=== PATIENT | female | born 1995 | race Caucasian/White ===

== ENCOUNTER 2022-07-05 17:46 | Outpatient (REF) | payer OTHER, SELFPAY ==
--- NOTE | 2022-07-05 15:10 | PAPFT_PTH ---
PATIENT: Chantale Lantigua LOC: [facility]#:[id number] AGE/SX: 27/F ROOM: RE07/05/[address]: Aleja Reyes : 1995 BED: DIS: 07/05/2022 SPEC #: [id number] RECD: 07/05/22 18:39 STATUS: INGRID REQ #: [id number] ROB: 07/05/22 15:[address]: Aleja Reyes DEPT: [facility] Cytology RECD BY: Dali Lala ENTERED: 07/05/22 18:39 SP TYPE: PAPFT OTHR DR: Unknown,Unknown Tissues: 1 - CX/ENDOCX FOR PAP SMEARS Procedures: PAP THIN PREP/UVM Screening Comments: [id number] (CHLAMYDIA/GC)
[2022-07-05 18:55] LABS: HCT 38.9 % (36.0-46.0); HGB 13.6 g/dL (11.2-15.7); MCH 29.1 pg (27.0-33.0); MCV 83 fL (80-95); Platelet Count 354 10^3/uL (130-400); RBC 4.67 10^6/uL (3.93-5.22); RDW 12.5 % (11.7-14.6); RDW-SD 37.8 fL; WBC 7.41 10^3/uL (4.4-10.8)
[2022-07-05 19:15] LABS: ALT 18 U/L (14-59); AST 16 U/L (15-37); Albumin 4.3 g/dL (3.4-5.0); Alkaline Phosphatase 76 U/L (46-116); Anion Gap 12.1 mmol/L (3-11); BUN 11 mg/dL (7-18); Bilirubin, Total 0.4 mg/dL (0.2-1.0); CO2 23.9 mmol/L (21.0-32.0); CREATININE 0.8 mg/dL (0.55-1.02); Calcium 9.4 mg/dL (8.5-10.1); Chloride 104 mmol/L (98-107); Glucose 97 mg/dL (74-106); Potassium 3.8 mmol/L (3.5-5.1); Sodium 140 mmol/L (136-145); TSH (W/Ref FT4) 1.67 uIU/mL (0.36-3.74); Total Protein 7.8 g/dL (6.4-8.2)
[2022-07-06 14:40] LABS: Chlamydia Result Negative (Negative); GC Result Negative (Negative)
== END 2022-07-05 17:47 | disposition home or self-care (01) ==
LOC: NCHCN 17:46
PROVIDERS: Visit Provider Nurse Practitioner Family
DX: R19.7 Diarrhea, unspecified (principal); R80.9 Proteinuria, unspecified; Z00.00 Encounter for general adult medical examination without abnormal findings; Z12.4 Encounter for screening for malignant neoplasm of cervix; Z11.3 Encounter for screening for infections with a predominantly sexual mode of transmission
CPT/HCPCS: 80053; 85027; 87491; 87591; 88142; 84443; 87086

== ENCOUNTER 2022-07-12 11:24 | Outpatient (CLI) | payer OTHER, SELFPAY ==
--- NOTE | 2022-07-12 | DI.CT_ITS ---
Exam(s) CT ABDOMEN PELVIS W EXAM: CT ABDOMEN PELVIS W CLINICAL HISTORY: DIARRHEA R19.7 WEIGHT LOSS R63.4 FEVER R50.9 ENDOMETRIOSIS N80.9. TECHNIQUE: Imaging Protocol: Axial computed tomography images with coronal and sagittal reformatted images were created and reviewed CONTRAST MATERIAL: Intravenous: Omnipaque-350 100cc Oral: Yes. Oral contrast was also administered for bowel opacification. COMPARISON: No exams were available for comparison FINDINGS: VISUALIZED LUNG BASES: No nodules nor pleural effusions evident. ABDOMEN: There is no ascites. LIVER: There are no focal hepatic lesions evident. No dilated intrahepatic ducts. GALLBLADDER/BILIARY: No obvious acute gallbladder pathology. CBD is not dilated. PANCREAS: No evidence of pancreatic mass nor dilatation of the pancreatic duct. SPLEEN: Spleen is not enlarged. No obvious intrasplenic lesions. Splenic and portal veins are paten t. ADRENALS: There are no significant adrenal masses. KIDNEYS:No cysts evident. No solid renal masses. No calculi nor hydronephrosis.. ABDOMINAL AORTA: Abdominal aorta is not enlarged. LYMPH NODES:There is no retroperitoneal nor paraaortic adenopathy. ABDOMINAL WALL: No evidence of significant anterior abdominal wall nor inguinal hernia. GI: There is no evidence of bowel obstruction, free air, nor abscess. Normal amount of fecal material in the colon. No obvious colitis pattern. No obvious enteritis markus georges. PELVIS: GI: No evidence of appendicitis.No evidence of sigmoid diverticulitis. LYMPH NODES: There is no intrapelvic nor inguinal adenopathy. REPRODUCTIVE: Uterus size is normal. Endometrial canal exhibits a moderate arcuate configuration. Ovarian size age-appropriate with follicular cysts evident in both ovaries. Also probable corpus lut eum cyst in the right ovary measuring 2.2 x 2.3 cm. There are no extraovarian adnexal masses nor camille e fluid in the pelvis. URINARY BLADDER: No calculi nor obvious masses evident OSSEOUS: No fractures and no significant osseous lesions. Increased density seen on the iliac side of both sacroiliac joints. No ankylosis. IMPRESSION: 1. No significant acute findings in the abdomen and pelvis. 2. Incidentally noted is an arcuate configuration of the endometrial canal of the uterus. RADIATION DOSE DELIVERED: Total DLP DATA REPOSITORY: All CT scans at this facility are submitted to the National Radiology Data Registry (NRDR) Dose Index Registry (DIR) with the [employer] (ACR). RADIATION OPTIMIZATION: All CT scans at this facility use at least one of these dose optimization te chniques: automated exposure control; mA and/or kV adjustment per patient size (includes targeted exa ms where dose is matched to clinical indication); or iterative reconstruction.
[2022-07-12] MEDS: Barium Sulfate 2% W/V-Berry Smoothie 450 ML BTL PO (14:47)
[2022-07-12] MEDS: Normal Saline - Diluent 50 ML VIAL IJ (14:51)
[2022-07-12] MEDS: Omnipaque 350 MG/ML 100 ML BTL IJ (14:52)
[2022-07-12] MEDS: Normal Saline Flush 10 ML SYR IVP (14:54)
== END 2022-07-12 11:44 ==
PROVIDERS: Visit Provider Nurse Practitioner Family
DX: R19.7 Diarrhea, unspecified (principal); R50.9 Fever, unspecified; N80.9 Endometriosis, unspecified
CPT/HCPCS: 74177; J3490

== ENCOUNTER 2022-08-22 01:31 | Outpatient (CLI) | payer OTHER, SELFPAY ==
[2022-08-22 16:23] LABS: HCT 37.9 % (36.0-46.0); HGB 13.3 g/dL (11.2-15.7); MCH 29.3 pg (27.0-33.0); MCHC 35.1 % (32.0-36.0); MCV 84 fL (80-95); MPV 10.5 fL (8.0-11.0); Platelet Count 307 10^3/uL (130-400); RBC 4.54 10^6/uL (3.93-5.22); RDW 12.5 % (11.7-14.6); WBC 8.54 10^3/uL (4.4-10.8)
[2022-08-22 17:18] LABS: HCG Qual (Serum) Negative
[2022-08-22 17:28] LABS: Anion Gap 8.6 mmol/L (3-11); BUN 11 mg/dL (7-18); CO2 26.4 mmol/L (21.0-32.0); CREATININE 0.8 mg/dL (0.55-1.02); Calcium 9.4 mg/dL (8.5-10.1); Chloride 104 mmol/L (98-107); Glucose 113 mg/dL (74-106); Potassium 3.4 mmol/L (3.5-5.1); Sodium 139 mmol/L (136-145)
== END 2022-08-22 01:32 | disposition home or self-care (01) ==
LOC: LBO 01:31
PROVIDERS: Visit Provider Obstetrics & Gynecology Gynecology
DX: Z01.818 Encounter for other preprocedural examination (principal)
CPT/HCPCS: 36415; 80048; 85027; 86850; 86900; 86901; 84703

== ENCOUNTER 2022-08-24 07:18 | Day surgery (SDC) | payer OTHER, SELFPAY ==
--- NOTE | 2022-08-23 14:56 | ANES.PREOP_ITS ---
General Info Date of Service Date Performed: 08/24/22 Height: 5 ft 5 in Weight: 90.718 kg Body Mass Index (BMI): 33.3 Surgical Procedure: Operation Date: 08/24/22 09:25 Proposed Procedure Side Surgeon p Diagnostic Laparoscopy Dyana Mar MD s Insertion of IUD Dyana Mar MD Meds Allergies and Home Medications Allergies Allergy/AdvReac Type Severity Reaction Status Date / Time Pertussis Vaccines Allergy Severe ananphylaxi Verified 08/24/22 07:58 s Sulfa (Sulfonamide AdvReac Severe Anaphylaxis Verified 08/24/22 07:58 Antibiotics) Home Medication Medication Instructions Recorded albuterol sulfate 90 mcg/actuation 2 inh inhalation Q6H PRN 12/28/20 breath activated powder inhaler sertraline 100 mg tablet 100 mg PO DAILY 12/28/20 imodium 1 tab PO DIRECTED 07/13/22 Current Visit Medications: Current Medications Generic Name Dose Route Start Last Admin Trade Name Freq PRN Reason Stop Dose Admin Ringer's Solution 1,000 mls @ 125 mls/hr 08/24/22 06:00 IV 09/22/22 23:59 INFUSION RANDI IV Miscellaneous Supplies 1 each 08/24/22 06:00 Iv Access IV 09/22/22 23:59 DIRECTED RANDI Sodium Chloride 0 ml 08/24/22 06:00 Normal Saline Flush 10 Ml Syr IV 09/22/22 23:59 PRN PRN Sodium Chloride 0 ml 08/24/22 06:00 Normal Saline 10 Ml Vial IJ 09/22/22 23:59 DIRECTED PRN Sterile Water 0 ml 08/24/22 06:00 Water,Injection,Sterile 10 Ml Vial IJ 09/22/22 23:59 DIRECTED PRN PFSH Active Problems Active Problems: Problem Status Onset Code Dysmenorrhea N94.6 Fever, unknown origin R50.9 Diarrhea R19.7 Unintentional weight loss R63.4 Endometriosis N80.9 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 H/O laparoscopy 2018. [place] Hx of dilation and curettage 2018. At time of fulguration of endometriosis. Nl endometrium. [place] Hx of tonsillectomy 2017. Ulnar nerve abnormality 2013 Umbilical hernia 2006 [place] teeth extracted 2011. Tobacco Smoking/Tobacco Use Status: Never Alcohol Alcohol Intake: current Alcohol intake frequency: a few times a month Substance Use Substance use: Daily Substance use type: marijuana Vital Signs and Lab Results Vital Signs Most Recent Vital Signs in EMR: Temp Pulse Resp BP Pulse Ox 36.4 C L 63 16 117/65 98 08/24/22 07:49 08/24/22 07:49 08/24/22 07:49 08/24/22 07:49 08/24/22 07:49 Lab Results Blood Type / Crossmatch: Patient ABO/Rh O Negative 08/22/22 Antibody Screen NEGATIVE 08/22/22 Complete Blood Count: White Blood Count 8.54 10^3/uL (4.4-10.8) 08/22/22 16:15 Red Blood Count 4.54 10^6/uL (3.93-5.22) 08/22/22 16:15 Hemoglobin 13.3 g/dL (11.2-15.7) 08/22/22 16:15 Hematocrit 37.9 % (36.0-46.0) 08/22/22 16:15 Platelet Count 307 10^3/uL (130-400) 08/22/22 16:15 Complete Metabolic Panel: Sodium 139 mmol/L (136-145) 08/22/22 16:15 Potassium 3.4 mmol/L (3.5-5.1) L 08/22/22 16:15 Chloride 104 mmol/L (98-107) 08/22/22 16:15 Carbon Dioxide 26.4 mmol/L (21.0-32.0) 08/22/22 16:15 BUN 11 mg/dL (7-18) 08/22/22 16:15 Creatinine 0.8 mg/dL (0.55-1.02) 08/22/22 16:15 Est GFR (CKD-EPI 2020) 104.80 (mL/min/1.73m2) 08/22/22 16:15 Calcium 9.4 mg/dL (8.5-10.1) 08/22/22 16:15 Glucose 113 mg/dL (74-106) H 08/22/22 16:15 Liver Function Panel: No Data to Display Coagulation Panel: No Data to Display Cardiac Panel: No Data to Display Arterial Blood Gas: No Data to Display Venous Blood Gas: No Data to Display Pancreas Panel: No Data to Display Thyroid Panel: No Data to Display Infectious Disease: No Data to Display Blood Cultures: No Data to Display Toxicology Panel: No Data to Display Panel: Serum HCG, Qualitative Negative 08/22/22 16:15 Anesthesia Assessment and Plan Anesthesia History Personal History: No History of Anesthesia Complications Family History: No Family History of Anesthesia Complications Exercise Tolerance Exercise Tolerance: Metabolic Equivalents>4 Pertinent Negatives Pertinent Negatives: No Major Cardiovascular Symptoms or Complaints, No Major Pulmonary Symptoms or Complaints and No History of CVA/TIA Cardiac & Pulmonary Exam Cardiac Exam: Normal S1/S2 Heart Sounds Pulmonary Exam: Clear Bilateral Breath Sounds Implantable Cardiac Device Does patient have a Pacemaker or an ICD?: No Airway Exam Known Difficult Airway: No Mallampati Class: 3 Mouth Opening: Normal (> 3cm) Thyromental Distance: Less than 3 cm Neck Range of Motion: Full ROM Neck Circumference: Normal Teeth Condition: Normal Dentition ASA Classification ASA Score: ASA 2 Emergency Case?: No NPO Status NPO Status: NPO Clears >2 hours, Solids >8 hours Status Status: Negative HCG Anesthesia Plan Resuscitation Status: Full Code Anesthesia Technique: General Anesthesia Airway Planned: Endotracheal Tube Monitors Used: Standard Monitors Preoperative Comments:: 27 yo female for diagnostic lap for chronic pelvic pain. Sig PMHx: PTSD, OCD, asthma (albuterol - mostly with cough/colds), anxiety (sertraline), never smoker, occ EtOH, daily cannabis Chronic GERD, uses OTC meds, no inhaler use for greater than a year and only with URI
[2022-08-24] VITALS (11 sets, daily range): BP systolic 109–125; BP diastolic 45–74; PULSE 59–85; RESP 13–19; TEMP 36.2–37; O2SAT 95–100; BMI 33.3
[2022-08-24] MEDS: Lactated Ringers 1,000 ML 125 ML IV (08:16)
--- NOTE | 2022-08-24 10:47 | PERITONEUM_PTH ---
PATIENT: Chantale Lantigua LOC: [facility] U#:[id number] AGE/SX: 27/F ROOM: RE08/24/[address]: Dyana Mar : 1995 BED: DIS: 08/24/2022 SPEC #: [id number] RECD: 08/24/22 11:40 STATUS: INGRID REQ #: [id number] ROB: 08/24/22 10:[address]: Dyana Mar DEPT: Surgical Specimen RECD BY: Dali Lala Tissues: 1 - PERITONEUM/RICHARD BIOPSY Procedures: GROSS AND MICRO LEVEL 4 Comments: [id number]
--- NOTE | 2022-08-24 11:18 | PDOC.DSDIS_ITS ---
Date of service: 08/24/22 Time of Service: 11:19 Discharge Plan Disposition Patient Disposition: Home Condition: Fair Discharge Details Reason For Visit: Diagnostic laparoscopy, Pelvic pain Attending Provider: Dyana Mar Home Meds and New Rx's Prescriptions: No Action imodium 1 tab PO DIRECTED sertraline 100 mg tablet 100 mg PO DAILY albuterol sulfate 90 mcg/actuation aerosol powdr breath activated 2 inh inhalation Q6H PRN Discharge Instructions Additional Instructions: Your IUD is in place. There are strings on the inside of your vagina. It is OK to use tampons with the IUD in place. You may have uterine bleeding for the next week. Call the office for a postop appointment in 2 weeks if you don't already have one scheduled. Findings at the time of surgery. 2.5cm endometriosis implant on the pelvic wall beneath your uterus. It was burnt and removed. No other endometriosis was seen. I will call a prescription for Percocet 5/325mg into your pharmacy. Take one tablet every six hours for strong pain along with Ibuprofen 600mg ( 3 tablets ) of over the counter Motrin. Call Dr. Mar at [phone] with any concerns or questions. Stand Alone Forms: Anesthesia Discharge Inst., DSU Post Medical Lab Scientist SurgeryW/[facility] ([facility]) Activity:: Activity as Tolerated Remove Dressings/Wound Care:: 24 hours Shower/Bathe:: 24 hours Diet:: As Tolerated
--- NOTE | 2022-08-24 11:34 | W.ANESPOSTOP ---
Postoperative Evaluation Date, Time and Location Date Performed: 08/24/22 Time Performed: 11:34 Patient Location: PACU Vital Signs Most Recent Imported Vital Signs: Most Recent Vital Signs Temp Pulse Resp BP Pulse Ox 36.5 C 76 16 109/74 98 08/24/22 11:16 08/24/22 11:16 08/24/22 11:16 08/24/22 11:16 08/24/22 11:16 Pain Score Most Recent Pain Score: Most Recent Pain Score Pain Level 0 08/24/22 11:16 Assessment Mental Status: Arousable with meaningful communication Airway and Respiratory Function: Patent airway with normal (patient baseline) respiratory exam Cardiovascular Function: Hemodynamically Stable Hydration Status: Adequately Hydrated Nausea & Vomiting: No Nausea or Vomiting Pain: Pain is Moderate or Severe Postoperative Pain Management: Pain being addressed with medication Peripheral Nerve Block: Patient did not receive a nerve block
[2022-08-24] MEDS: Normal Saline 10 ML VIAL IJ (11:41)
[2022-08-24] MEDS: HYDROmorphone 2 MG/ML SYR IVP ×3 (11:41→12:01)
--- NOTE | 2022-08-24 11:41 | ROE_ITS ---
Date of service: 08/24/22 Time of Service: 11:41 Operative Note Operative Note DATE OF PROCEDURE: 08/24/22 PRE-OP DIAGNOSIS: Pelvic pain, endometriosis, dysmenorrhea samel PROCEDURE: Laparoscopy with fulguration and excision of endometriosis, insertion of Kyleena IUD SURGEON: Dyana Mar ASSISTING SURGEON: Eli Chapin Refer to Anesthesia Record ESTIMATED BLOOD LOSS: 0 PATHOLOGY: other (solitary focus of endometriosis from posterior culdesac) COMPLICATIONS: None Patient was transported to: PACU Patient's condition: stable Implants: Kyleena IUD Lot# [id number] Exp date Indications: 27yo G0 female with a history of chronic pelvic pain and dysmenorrhea.?History of endometriosis. Findings: 2.5cm solitary lesion of endometriosis of the pelvic side wall in posterior culdesac. Both adnexa visualized. Nl appearing ovaries and fallopian tubes. Normal upper abdomen. Appendix not visualized. Procedure Description: Patient was taken to the operating room where she was placed in the dorsal ortiz pine position and endotracheal anesthesia was administered.? She was then placed in the dorsolithotomy position [facility] stirrups and prepped in the usual sterile fashion.? SCDs were in place.? A surgical timeout was performed.?A hyamn catheter was inserted into the bladder for the remainder of the case. A Cav[employer] microcaps uterine manipulator was inserted and left in place during the case. The umbilical fold was infiltrated with quarter percent Marcaine in a 12 mm transverse skin incision was made in the umbilicus along the previous scar.? Through this incision a varies needle connected to carbon dioxide gas was inserted into the abdomen but we were unable to confirm intra-abdominal placement since there was no drop in the intra-abdominal pressure.?Instead the subcutaneous tissue beneath the umbilical incision was dissected to the level of the fascia. The fascia was tented up with Armen clamps and the 12 mm Visiport trocar was introduced into the abdomen under direct visualization.Once a pn eumoperitoneum was established the patient was placed in the Trendelenburg position two 5mm trochars with sleeves were placed approximately 6 cm diagonal to the right and left of the umbilical incision under direct visualization. The abdomen was inspected with the above-noted findings. The peritoneum to which the endometriosis implant was attatched was grasped, tented up and cauterized with monopolar electrocautery. The treated peritoneum was then excised and sent to pathology. The excision site was inspected and noted to be hemostatic. Patient was repositioned in the dorsal supine position and both 5 mm ports were removed under direct visualization.? The pneumoperitoneum was deflated and the umbilical port site was removed.? The rectus fascia below the 12 mm port site was reapproximated with interrupted suture of 0 Vicryl.? The skin was reapproximated on the umbilical port site with a running subcuticular closure of 4-0 Monocryl.? The edges of both 5 mm and 12 mm port sites were reapproximated with Steri-Strips and covered with dry sterile dressing. Hyman catheter was removed.The [employer] uterine manipulator was removed from the cervix. The anterior lip of the cervix was grasped and a single tooth tenaculum and a Kyleena IUD was then inserted into the uterine cavity to a depth of 6cm with the assistance of transabdominal ultrasound to confirm the IUD was at the uterine fundus. The IUD strings were trimmed and all instruments were removed from the vagina. The patient was placed in the dorsal supine position, awakened, extubated and transported recovery area in stable condition.? All sponge lap needle counts correct x2.
== END 2022-08-24 13:20 | disposition home or self-care (01) ==
PROVIDERS: Visit Provider Obstetrics & Gynecology Gynecology
PROC: (CPT 49320; principal; 2022-08-24 09:15)
PROC: (CPT 58662; 2022-08-24 09:15)
DX: N94.6 Dysmenorrhea, unspecified (principal); R10.2 Pelvic and perineal pain; N80.329 Endometriosis of the posterior cul-de-sac, unspecified depth
CPT/HCPCS: 58662; 58300; 81025; 88305; J0131; J1100; J1170; J1885; J2250; J2405; J3475

== ENCOUNTER 2024-03-26 08:44 | Emergency (ER) | payer OTHER, SELFPAY ==
[2024-03-26] VITALS (10 sets, daily range): BP systolic 110–128; BP diastolic 55–69; PULSE 57–94; RESP 8–19; TEMP 35.9; O2SAT 98–100
--- NOTE | 2024-03-26 08:45 | RT.EKG_ITS ---
APPROVED REPORT Exam: Resting ECG Reason for Exam: Chest Pain Patient Location: E HR:67 bpm ECG Measurements Heart Rate 67 AXIS TN 163 P 48 QRSd 90 QRS 32 QT 374 T 37 QTc 395 Conclusion Sinus arrhythmia...V-rate 59- 85, variation>10%
--- NOTE | 2024-03-26 09:00 | DI.RAD_ITS ---
Exam(s) XR CHEST 2V PA LATERAL EXAM: XR CHEST 2V PA LATERAL CLINICAL HISTORY: chest pain TECHNIQUE: 2D digital imaging was performed. Two views. COMPARISON: No exams were available for comparison FINDINGS: HEART: Normal size. Aorta: Not dilated. PULMONARY VASCULATURE: Normal. MEDIASTINUM: Unremarkable. LUNGS: Clear. PLEURAL SPACE: No pleural effusion or pneumothorax. BONE:Unremarkable for age. SOFT TISSUES: Unremarkable. IMPRESSION: No acute abnormality. DATA REPOSITORY: RADIATION DOSE DELIVERED:
--- NOTE | 2024-03-26 09:09 | W.ED.GENAD ---
Discharge Plan Disposition Patient Disposition: Home Condition: Stable Discharge Details Clinical Impression: Chest pain Primary Care Provider: Unknown,Unknown ED Provider: Robert Lester Home Meds and New Rx's Prescriptions: Continued Kyleena 17.5 mcg/24 hrs (5 yrs) 19.5 mg intrauterine device 1 device intrauterine ONCE Qty: 1 0RF Rx Instructions: as a single dose albuterol sulfate 90 mcg/actuation aerosol powdr breath activated 2 inh inhalation Q6H PRN Discharge Instructions Additional Instructions: Your labs and x-ray did not show any concerning findings at this time You can take 1000 mg of acetaminophen and 600 mg of ibuprofen every 6 hours as needed Follow-up with your primary care provider if you are not improving If you feel more ill, have severe worsening pain or difficulty breathing return to the emergency department for reevaluation. HPI General Mode of arrival: ambulatory. Date/Time Provider Initiated Documentation: 03/26/24 08:45. Limitations to Documentation: no limitations. Information obtained by: patient. History of Present Illness 28 year old F presents to the emergency department with the chief complaint of chest pain, described as moderate, Quality is described as aching, and is localized to the chest. Patient reports no radiation. Patient started experiencing this day(s) (2) and it has been constant. No relieving factors improve symptom(s), Other factors that worsen symptoms (touching her sternum) . Patient notes denies fever/chills and shortness of breath. Patient did receive the following treatments prior to arrival, none Related Data Home Medications ?Medication ?Instructions ?Recorded ?Confirmed albuterol sulfate 90 mcg/actuation 2 inh inhalation Q6H PRN 12/28/20 03/26/24 breath activated powder inhaler levonorgestrel 17.5 mcg/24 hr (up 1 device intrauterine ONCE #1 ea 08/24/22 03/26/24 to 5 yrs) 19.5mg intrauterine device (Kyleena) Previous Rx's ?Medication ?Instructions ?Recorded levonorgestrel 17.5 mcg/24 hr (up 1 device intrauterine ONCE #1 ea 08/24/22 to 5 yrs) 19.5mg intrauterine device (Kyleena) Allergies Allergy/AdvReac Type Severity Reaction Status Date / Time Pertussis Vaccines Allergy Severe ananphylaxi Verified 03/26/24 08:47 s Sulfa (Sulfonamide AdvReac Severe Anaphylaxis Verified 03/26/24 08:47 Antibiotics) General Stated Complaint: Chest/Rib ISABELLA: 4 Review of Systems All systems reviewed & are unremarkable except as noted in HPI and below Constitutional Constitutional: Denies chills, Denies fever(s) and Denies weakness Cardiovascular Cardiovascular: Reports chest pain and Denies dyspnea Respiratory Respiratory: Denies cough and Denies dyspnea Gastrointestinal Gastrointestinal: Denies abdominal pain, Denies nausea and Denies vomiting Musculoskeletal Musculoskeletal: Denies joint swelling Neurologic Neurologic: Denies weakness Exam Const General: no acute distress Orientation: alert HENMT Head: normal to inspection Ears: external ears normal General nose exam: external nose normal Mouth: moist mucous membranes Eyes General: appearance normal, both eyes and all related structures Neck Neck: normal visual inspection Chest Chest: normal inspection of the chest and tenderness Resp Effort & Inspection: normal respiratory effort and able to speak in complete sentences Auscultation: clear to auscultation bilaterally Cardio Rate: regular rate Heart Sounds: no murmurs Skin General skin exam: no rashes or lesions noted Neuro General: patient alert and patient oriented x3 Extrem General: normal to inspection Psych Mental Status: mental status grossly normal Course Vital Signs Vital signs: Vital Signs Temperature 35.9 C L 03/26/24 08:48 Pulse 84 03/26/24 08:48 Respiratory Rate 16 03/26/24 08:48 Blood Pressure 128/67 03/26/24 08:48 Pulse Oximetry 100 03/26/24 08:48 Temperature 35.9 C L 03/26/24 08:48 Temperature Source Temporal Artery Scan 03/26/24 08:48 Pulse 84 03/26/24 08:48 Respiratory Rate 16 03/26/24 08:48 Respiratory Effort Normal, Non-Labored 03/26/24 08:50 Blood Pressure 128/67 03/26/24 08:48 Blood Pressure Position Sitting 03/26/24 08:48 Pulse Oximetry 100 03/26/24 08:48 Oxygen Delivery Method Room Air 03/26/24 08:48 Oxygen Flow Rate 0 03/26/24 08:48 Pain Level 4 03/26/24 08:48 Comment took tyl yesterday 03/26/24 08:48 Medical Decision Making The 28-year-old female who denies any significant past medical history other than a history of anxiety comes in with chest pain for 2 days. She says it started after her with a pulled abdominal bed while she was laying down in her chest. She has a aching in her anterior chest that worsens when she touches her sternum. She denies any difficulty breathing, fevers, vomiting. She does note she has been more anxious last 2 days. She is noted x 4 and arrival speaking in full sentences without respiratory distress. She has clear lung sounds, no murmurs, no JVD, soft nontender abdomen. No leg swelling or calf tenderness. Suspect chest contusion and has reproducible anterior chest tenderness without palpable or visible deformities. I doubt ACS and will check a single troponin if that is negative do not feel further workup indicated. She has no tachycardia, no hypoxia and has no pleuritic chest pain and no evidence of DVT on exam so doubt no tearing back pain and equal peripheral pulses so doubt dissection. Labs and x-ray unremarkable, patient resting in bed in no distress. Given she had pain for 2 days do not feel additional troponin is indicated. I suspect chest wall contusion. She will follow-up with her PCP and return precautions given Differential Diagnosis Differential Diagnosis: Chest contusion, sprain, anxiety Lab Data Lab results reviewed: Yes I reviewed the patient's lab results. ECG Data Attestation: I personally reviewed and interpreted this ECG (s) as follows: Prior ECG tracings: not available for review Interpretation: Sinus rhythm, rate of 67, [place] 163, no STEMI Quality:SDOH Health Related Social Needs: No Data to Display PFSH All Active Problems (Updated 03/26/24 @ 10:06 by Robert Lester MD) Chest pain (Acute) IUD surveillance (Acute) Postop check (Acute) Dysmenorrhea (Acute) Fever, unknown origin (Acute) Diarrhea (Acute) Unintentional weight loss (Acute) Endometriosis (Chronic) 2018. Mild, dx [place] in [place] 08/2022. Stage 1 posterior cul-de-sac. excised and fulgurated. Bicornuate uterus (Chronic) 2018. 6mm fundal indentation. Single cervix. Pelvic pain (Chronic) Longstanding. 2018. Dx by laparoscopy with mild endometriosis. Fulgurated at time of surgery. Anxiety and depression (Chronic) PTSD (post-traumatic stress disorder) (Acute) Obsessive compulsive disorder (Acute) Asthma (Chronic) Kidney stones (Chronic) Surgical History H/O elbow surgery 2007. H/O laparoscopy 2018. [place] of [place]. [place] 08/2022. Stage 1 posterior cul-de-sac. excised and fulgurated. Hx of dilation and curettage 2018. At time of fulguration of endometriosis. Nl endometrium. [place] Hx of tonsillectomy 2017. Ulnar nerve abnormality 2013 Umbilical hernia 2006 [place] teeth extracted 2011. Social History Smoking/Tobacco Use Status: Never Smoking risk assessment performed?: Yes Alcohol Intake: current Alcohol Intake frequency: a few times a month Drug use: Daily Substance use type: marijuana Details: 08/23/22 smoked marijuana Household members: friend(s) and other Details: roomate. 2021. from female partner of 4 yrs. 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 ) Sexually active: Yes Do you think of yourself as: lesbian/walker/homosexual Current gender identity: female Do you feel safe at home: Yes Do you feel safe in your relationship?: Yes
[2024-03-26 09:35] LABS: Abs Immature Grans 0.08 10^3/uL (0.0-0.06); Absolute Basophil Count 0.06 10^3/uL (0.0-0.2); Absolute Eosinophil Count 0.07 10^3/uL (0.0-0.7); Absolute Lymphocyte Count 1.37 10^3/uL (1.2-3.4); Absolute Monocyte Count 0.49 10^3/uL (0.1-0.8); Absolute Neutrophil Count 8.43 10^3/uL (1.2-6.7); Basophils % 0.6 %; Eosinophils % 0.7 %; HCT 40.8 % (36.0-46.0); HGB 14.2 g/dL (11.2-15.7); Immature Grans % 0.8 %; MCHC 34.8 % (32.0-36.0); MCV 83 fL (80-95); Monocytes % 4.7 %; Neutrophils % 80.2 %; Platelet Count 342 10^3/uL (130-400); RBC 4.89 10^6/uL (3.93-5.22); RDW 12.3 % (11.7-14.6); RDW-SD 37.2 fL
[2024-03-26 09:49] LABS: ALT 17 U/L (14-59); AST 12 U/L (15-37); Alkaline Phosphatase 64 U/L (46-116); Anion Gap 10.2 mmol/L (3-11); BUN 11 mg/dL (7-18); Bilirubin, Total 0.74 mg/dL (0.2-1.0); CO2 25.8 mmol/L (21.0-32.0); CREATININE 0.9 mg/dL (0.55-1.02); Calcium 9.5 mg/dL (8.5-10.1); Chloride 106 mmol/L (98-107); Estimated GFR 90.42 (mL/min/1.73m2); Glucose 109 mg/dL (74-106); Lipase 28 U/L (16-77); Magnesium 1.9 mg/dL (1.8-2.4); Potassium 3.9 mmol/L (3.5-5.1); Sodium 142 mmol/L (136-145); Total Protein 7.7 g/dL (6.4-8.2); Troponin I < 4 ng/L (<or=51)
== END 2024-03-26 10:16 | disposition home or self-care (01) ==
PROVIDERS: Emergency Provider Emergency Medicine
DX: R07.9 Chest pain, unspecified (principal); F41.9 Anxiety disorder, unspecified
CPT/HCPCS: 36415; 80053; 83690; 93005; 99285; 71046; 83735; 84484; 85025; 93010; 99284

== ENCOUNTER 2024-03-27 14:11 | Emergency (ER) | payer OTHER, SELFPAY ==
[2024-03-27] VITALS (20 sets, daily range): BP systolic 101–133; BP diastolic 52–84; PULSE 63–94; RESP 15–18; TEMP 36.6; O2SAT 99–100
--- NOTE | 2024-03-27 14:00 | RT.EKG_ITS ---
APPROVED REPORT Exam: Resting ECG Reason for Exam: chest pressure Patient Location: E HR:99 bpm ECG Measurements Heart Rate 99 AXIS MS 146 P 56 QRSd 88 QRS 56 QT 324 T 51 QTc 416 Conclusion Sinus rhythm...normal P axis, V-rate 60- 99
--- NOTE | 2024-03-27 14:36 | ED.GENADUL_ITS ---
Discharge Plan Disposition Patient Disposition: Home Condition: Stable Discharge Details Clinical Impression: Chest pain Primary Care Provider: Unknown,Unknown ED Provider: Roebrt Lester Home Meds and New Rx's Prescriptions: Continued Kyleena 17.5 mcg/24 hrs (5 yrs) 19.5 mg intrauterine device 1 device intrauterine ONCE Qty: 1 0RF Rx Instructions: as a single dose albuterol sulfate 90 mcg/actuation aerosol powdr breath activated 2 inh inhalation Q6H PRN Discharge Instructions Additional Instructions: Your blood work and CAT scan did not show any concerning findings at this time. He is likely your symptoms could be due to anxiety. I would recommend following up with your primary care provider within 1 to 2 weeks. If you feel more ill or feel you are suffering from emergent medical process please return to the emergency department for reevaluation. HPI General Mode of arrival: ambulatory . Date/Time Provider Initiated Documentation: 03/27/24 14:12 . Limitations to Documentation: no limitations . Information obtained by: patient . History of Present Illness 28 year old F presents to the emergency department with the chief complaint of chest pain, described as moderate, Quality is described as sharp, and is localized to the chest. Patient reports no radiation. Patient started experiencing this day(s) (2) and it has been constant. No relieving factors improve symptom(s), Other factors that worsen symptoms (deep breaths, palpation) . Patient notes shortness of breath; denies fever/chills. Patient did receive the following treatments prior to arrival, none Related Data Home Medications ?Medication ?Instructions ?Recorded ?Confirmed albuterol sulfate 90 mcg/actuation 2 inh inhalation Q6H PRN 12/28/20 03/27/24 breath activated powder inhaler levonorgestrel 17.5 mcg/24 hr (up 1 device intrauterine ONCE #1 ea 08/24/22 03/27/24 to 5 yrs) 19.5mg intrauterine device (Kyleena) Previous Rx's ?Medication ?Instructions ?Recorded levonorgestrel 17.5 mcg/24 hr (up 1 device intrauterine ONCE #1 ea 08/24/22 to 5 yrs) 19.5mg intrauterine device (Kyleena) Allergies Allergy/AdvReac Type Severity Reaction Status Date / Time Pertussis Vaccines Allergy Severe ananphylaxi Verified 03/27/24 14:20 s Sulfa (Sulfonamide AdvReac Severe Anaphylaxis Verified 03/27/24 14:20 Antibiotics) General Stated Complaint: Chest Pain ISABELLA: 4 Review of Systems All systems reviewed & are unremarkable except as noted in HPI and below Constitutional Constitutional: Denies chills, Denies fever(s) and Denies weakness ENT Ears, Nose, Mouth, and Throat: Denies change in voice Cardiovascular Cardiovascular: Reports chest pain and Reports dyspnea Respiratory Respiratory: Denies cough and Reports dyspnea Gastrointestinal Gastrointestinal: Denies abdominal pain, Denies nausea and Denies vomiting Neurologic Neurologic: Denies weakness Exam Const General: no acute distress Orientation: alert HENOR Head: normal to inspection Ears: external ears normal General nose exam: external nose normal Mouth: moist mucous membranes Eyes General: appearance normal, both eyes and all related structures Neck Neck: normal visual inspection Chest Chest: normal inspection of the chest Resp Effort & Inspection: normal respiratory effort and able to speak in complete sentences Auscultation: clear to auscultation bilaterally Cardio Jugular venous pressure: no JVD Rate: regular rate Heart Sounds: no murmurs GI Palpation: soft and nontender Skin General skin exam: no rashes or lesions noted Neuro General: patient alert and patient oriented x3 Extrem General: normal to inspection Psych Mental Status: mental status grossly normal Course Vital Signs Vital signs: Vital Signs Temperature 36.6 C 03/27/24 14:14 Pulse 94 H 03/27/24 14:14 Respiratory Rate 18 03/27/24 14:14 Blood Pressure 130/82 03/27/24 14:14 Pulse Oximetry 99 03/27/24 14:14 Temperature 36.6 C 03/27/24 14:14 Pulse 94 H 03/27/24 14:14 Respiratory Rate 18 03/27/24 14:14 Respiratory Effort Normal 03/27/24 14:21 Blood Pressure 130/82 03/27/24 14:14 Pulse Oximetry 99 03/27/24 14:14 Pain Level 3 03/27/24 14:14 Medical Decision Making 28-year-old female who says she has a history of asthma and anxiety and OCD comes in with continued chest pain. She was seen yesterday for chest pain that had been going on for 2 days and had negative labs and x-ray and was discharged, states she still feels short of breath and right-sided pleuritic and chest burning sensation. She is anxious she states that she did have a CAT scan while she was here. She denies any fevers, vomiting, radiation of her pain. She is well-appearing on exam though she does appear anxious. She is clear lung sounds, no murmurs, no JVD, she is speaking full sentences without evidence of respiratory distress. There is no leg swelling or calf tenderness. She has no visible or palpable deformities of the chest wall though she says that pushing on the right side of her chest does increase the pain. Discussed that she is very low likelihood to have entities such as PE or dissection based on her history and exam and vital signs, despite discussing risks of radiation she still would like to pursue CT so CTA to evaluate for PE ordered as my suspicion for dissection is lower as she has no tearing back pain and equal peripheral pulses. Labs and CTA unremarkable, given she has had symptoms for well over 3 hours do not feel delta troponin indicated. He is hemodynamically stable. Exam. I suspect anxiety, she will follow-up with her PCP and return precautions given. Differential Diagnosis Differential Diagnosis: Anxiety, chest wall pain, NSTEMI, PE Lab Data Lab results reviewed: Yes I reviewed the patient's lab results. ECG Data Attestation: I personally reviewed and interpreted this ECG (s) as follows: Prior ECG tracings: available for review Interpretation: Sinus rhythm, rate of 99, [place] 146, no STEMI Quality:SDOH Health Related Social Needs: Health related social needs housing instability, house d, with risk of homelessness(Z59.811) [facility] All Active Problems (Updated 03/27/24 @ 16:05 by Robert Lester MD) Chest pain (Acute) Chest pain (Acute) IUD surveillance (Acute) Postop check (Acute) Dysmenorrhea (Acute) Fever, unknown origin (Acute) Diarrhea (Acute) Unintentional weight loss (Acute) Endometriosis (Chronic) 2018. Mild, dx by laparoscopy in [place]. 08/2022. Stage 1 posterior cul-de-sac. excised and fulgurated. Bicornuate uterus (Chronic) 2018. 6mm fundal indentation. Single cervix. Pelvic pain (Chronic) Longstanding. 2018. Dx by laparoscopy with mild endometriosis. Fulgurated at time of surgery. Anxiety and depression (Chronic) PTSD (post-traumatic stress disorder) (Acute) Obsessive compulsive disorder (Acute) Asthma (Chronic) Kidney stones (Chronic) Surgical History H/O elbow surgery 2007. H/O laparoscopy 2018. [place]guration of [place]osis. [place]. 08/2022. Stage 1 posterior cul-de-sac. excised and fulgurated. Hx of dilation and curettage 2018. At time of fulguration of endometriosis. Nl endometrium. [place] Hx of tonsillectomy 2017. Ulnar nerve abnormality 2013 Umbilical hernia 2006 [place] teeth extracted 2011. Social History Smoking/Tobacco Use Status: Never Smoking risk assessment performed?: Yes Alcohol Intake: current Alcohol Intake frequency: a few times a month Drug use: Daily Substance use type: marijuana Details: 08/23/22 smoked marijuana Household members: friend(s) and other Details: roomate. 2021. from female partner of 4 yrs. 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 ) Sexually active: Yes Do you think of yourself as: lesbian/walker/homosexual Current gender identity: female Do you feel safe at home: Yes Do you feel safe in your relationship?: Yes
[2024-03-27 14:51] LABS: Abs Immature Grans 0.06 10^3/uL (0.0-0.06); Absolute Basophil Count 0.05 10^3/uL (0.0-0.2); Absolute Eosinophil Count 0.06 10^3/uL (0.0-0.7); Absolute Lymphocyte Count 1.84 10^3/uL (1.2-3.4); Absolute Monocyte Count 0.58 10^3/uL (0.1-0.8); Absolute Neutrophil Count 8.13 10^3/uL (1.2-6.7); Basophils % 0.5 %; Eosinophils % 0.6 %; HCT 42.2 % (36.0-46.0); HGB 14.7 g/dL (11.2-15.7); Immature Grans % 0.6 %; Lymphocytes % 17.2 %; MCH 29.2 pg (27.0-33.0); MCHC 34.8 % (32.0-36.0); MCV 84 fL (80-95); Monocytes % 5.4 %; Neutrophils % 75.7 %; Platelet Count 378 10^3/uL (130-400); RBC 5.03 10^6/uL (3.93-5.22); RDW 12.2 % (11.7-14.6); RDW-SD 37.2 fL; WBC 10.72 10^3/uL (4.4-10.8)
--- NOTE | 2024-03-27 15:17 | DI.CT_ITS ---
Exam(s) CT CHEST PE CTA EXAM: CT CHEST PE CTA CLINICAL HISTORY: right sided chest pleuritic pain. TECHNIQUE: Imaging Protocol: Axial CT angiography was performed with multi-slice acquisition and mu lti-planar and/or 3D reconstructions. Computer aided detection (CAD) was utilized. CONTRAST MATERIAL: Intravenous: Omnipaque 350 contrast volume:75 mL COMPARISON: CR XR CHEST 2V PA LATERAL from 03/26/2024 FINDINGS: Tracheobronchial tree: Patent where visualized. No bronchiectasis. Pulmonary parenchyma: No consolidation or dominant measurable mass. No architectural distortion. Pulmonary Arteries: No evidence of filling defect to suggest pulmonary emboli. Mediastinum and Chiquis: No dominant adenopathy or fluid collection. The esophagus is unremarkable. Visualized thyroid gland: Unremarkable. Pleura: No effusion or pneumothorax. Heart: The heart is not dilated. No coronary artery calcifications are seen. No pericardial effusion. Aorta: Thoracic aorta non-dilated. No evidence of dissection. Upper abdomen: Unremarkable. Soft tissues: Unremarkable. Bones: Within normal limits for the patient's age. IMPRESSION: No evidence of pulmonary embolism, thoracic aortic dissection or aneurysm. RADIATION DOSE DELIVERED: 88.08mGy.cm Total DLP DATA REPOSITORY: All CT scans at this facility are submitted to the National Radiology Data Registry (NRDR) Dose Index Registry (DIR) with the [employer] (ACR). RADIATION OPTIMIZATION: All CT scans at this facility use at least one of these dose optimization te chniques: automated exposure control; mA and/or kV adjustment per patient size (includes targeted exa ms where dose is matched to clinical indication); or iterative reconstruction.
[2024-03-27] MEDS: Omnipaque 350 MG/ML 100 ML BTL 75 ML IJ (15:19)
[2024-03-27] MEDS: Normal Saline - Diluent 50 ML VIAL IJ (15:20)
[2024-03-27 15:57] LABS: ALT 18 U/L (14-59); AST 13 U/L (15-37); Albumin 4.6 g/dL (3.4-5.0); Alkaline Phosphatase 73 U/L (46-116); Anion Gap 13.7 mmol/L (3-11); BUN 13 mg/dL (7-18); Bilirubin, Total 0.78 mg/dL (0.2-1.0); CO2 23.3 mmol/L (21.0-32.0); Calcium 10.1 mg/dL (8.5-10.1); Chloride 104 mmol/L (98-107); Estimated GFR 79.68 (mL/min/1.73m2); Glucose 103 mg/dL (74-106); Potassium 3.6 mmol/L (3.5-5.1); Sodium 141 mmol/L (136-145); Total Protein 8.7 g/dL (6.4-8.2)
[2024-03-27 15:58] LABS: Troponin I < 4 ng/L (<or=51)
== END 2024-03-27 16:38 | disposition home or self-care (01) ==
PROVIDERS: Emergency Provider Emergency Medicine
DX: R07.9 Chest pain, unspecified (principal); F41.9 Anxiety disorder, unspecified
CPT/HCPCS: 71275; 80053; 93005; 99285; 84484; 85025; 93010; 99284; J3490

== ENCOUNTER 2024-04-04 17:02 | Emergency (ER) | payer OTHER, SELFPAY ==
--- NOTE | 2024-04-04 17:00 | RT.EKG_ITS ---
APPROVED REPORT Exam: Resting ECG Reason for Exam: chest pain Patient Location: E HR:74 bpm ECG Measurements Heart Rate 74 AXIS SD 158 P 30 QRSd 99 QRS 32 QT 362 T 26 QTc 402 Conclusion Sinus rhythm...normal P axis, V-rate 60- 99
[2024-04-04 17:05] VITALS: BP 124/75; PULSE 71; RESP 18; TEMP 36.6; O2SAT 99
--- NOTE | 2024-04-04 17:14 | W.ED.GENAD ---
Discharge Plan Disposition Patient Disposition: Home Condition: Stable Discharge Details Clinical Impression: Anxiety Primary Care Provider: Unknown,Unknown ED Provider: Gary Campo Home Meds and New Rx's Prescriptions: New hydroxyzine HCl 25 mg tablet 25 mg PO QID PRN (Reason: anxiety) Qty: 30 0RF albuterol sulfate 90 mcg/actuation HFA aerosol inhaler 2 puff inhalation Q6H PRN (Reason: asthma) Qty: 6.7 0RF No Action Kyleena 17.5 mcg/24 hrs (5 yrs) 19.5 mg intrauterine device 1 device intrauterine ONCE Qty: 1 0RF Rx Instructions: as a single dose albuterol sulfate 90 mcg/actuation aerosol powdr breath activated 2 inh inhalation Q6H PRN Discharge Instructions Instructions: Albuterol, Hydroxyzine, Lorazepam, Anxiety, Adult ED Additional Instructions: You were seen in the emergency department for your diffuse burning chest pain with multiple negative workups here in the emergency department this week, I suspect you are having anxiety attack. Please trial the Ativan tonight and grape picker your hydroxyzine prescription to use as needed for anxiety, I have also refilled your albuterol prescription, please monitor your condition closely and return for worsening chest pain despite treatment, cough, fever, profound shortness of breath. Discharge Data Discharge Date/Time-TO BE ENTERED AT DEPARTURE: 04/04/24 17:46 HPI General Date/Time Provider Initiated Documentation: 04/04/24 17:04. HPI Narrative: 28 year-old female presents to ED today by POV/ambulating with a chief complaint of third visit for chest pain with significant workup was performed including negative CTA and negative serial troponins earlier this week, complaining of burning central chest pain, patient is tearful while describing her story endorses perseverating on this chest pain worrying if she has got some sort of lung infection or if this is asthma or other pathology with onset for about a week now, states she is detoxing from nicotine and feels like her heart is racing, endorses vaping. 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 Severity is described as moderate. Palliating factors include nothing specific. Provoking factors include nothing specific. Patient not anticoagulated. Related Data Home Medications ?Medication ?Instructions ?Recorded ?Confirmed albuterol sulfate 90 mcg/actuation 2 inh inhalation Q6H PRN 12/28/20 04/04/24 breath activated powder inhaler levonorgestrel 17.5 mcg/24 hr (up 1 device intrauterine ONCE #1 ea 08/24/22 04/04/24 to 5 yrs) 19.5mg intrauterine device (Kyleena) albuterol sulfate 90 mcg/actuation 2 puff inhalation Q6H PRN asthma 04/04/24 aerosol inhaler #6.7 grams hydroxyzine HCl 25 mg tablet 25 mg PO QID PRN anxiety #30 tabs 04/04/24 Previous Rx's ?Medication ?Instructions ?Recorded levonorgestrel 17.5 mcg/24 hr (up 1 device intrauterine ONCE #1 ea 08/24/22 to 5 yrs) 19.5mg intrauterine device (Kyleena) albuterol sulfate 90 mcg/actuation 2 puff inhalation Q6H PRN asthma 04/04/24 aerosol inhaler #6.7 grams hydroxyzine HCl 25 mg tablet 25 mg PO QID PRN anxiety #30 tabs 04/04/24 Allergies Allergy/AdvReac Type Severity Reaction Status Date / Time Pertussis Vaccines Allergy Severe ananphylaxi Verified 04/04/24 17:12 s Sulfa (Sulfonamide AdvReac Severe Anaphylaxis Verified 04/04/24 17:12 Antibiotics) General Stated Complaint: Anxiety ISABELLA: 4 Review of Systems All systems reviewed & are unremarkable except as noted in HPI and below Exam Narrative Exam Narrative: GENERAL APPEARANCE: Well-nourished, non-toxic, awake and alert, atraumatic, no acute distress. SKIN: Warm, pink, dry, intact, without rashes/lesions/ulcerations. HEAD: Normocephalic, atraumatic, normal hair distribution for gender/age. EYES: Normal conjunctiva, no exudates on lids/lashes. ENT: Nares patent, no circumoral cyanosis, no facial swelling NECK: Supple, trachea midline, painless cervical ROM. LUNGS/CHEST: Lungs CTA bilaterally-no rhonchi/rales/wheezes diffusely, non-labored respirations, normal A/P diameter, symmetrical expansion, no chest wall deformity HEART (CV/PV): Regular rate and rhythm without murmur, no peripheral edema, no JVD. ABDOMEN: Soft, non-distended, no guarding. MSK: Normal ROM, no swelling/deformity to bilateral UEs or LEs, moving all extremities without weakness, no cyanosis, spine midline without tenderness, normal curvature. NEURO: Mental Status AAOx4 - alert to person, place, time, events No facial droop, no forehead involvement. Motor: No focal weakness - strength 5/5 in bilateral UEs and LEs, proximal and distal, symmetric. Sensory: sensation intact to light touch globally. Gait normal: patient ambulated without ataxia into ED room. PSYCH: dysthymic, cooperative, pleasant, hurried tearful anxious speech Course Vital Signs Vital signs: Vital Signs Temperature 36.6 C 04/04/24 17:05 Pulse 71 04/04/24 17:05 Respiratory Rate 18 04/04/24 17:05 Blood Pressure 124/75 04/04/24 17:05 Pulse Oximetry 99 04/04/24 17:05 Temperature 36.6 C 04/04/24 17:05 Pulse 71 04/04/24 17:05 Respiratory Rate 18 04/04/24 17:05 Blood Pressure 124/75 04/04/24 17:05 Blood Pressure Position Sitting 04/04/24 17:05 Pulse Oximetry 99 04/04/24 17:05 Oxygen Delivery Method Room Air 04/04/24 17:05 Oxygen Flow Rate 0 04/04/24 17:05 Pain Level 5 04/04/24 17:05 Medical Decision Making This dictation utilizes [id number] dictation software and may contain unedited grammatical errors. 28 year-old female presents to ED today by POV/ambulating with a chief complaint of third visit for chest pain with significant workup was performed including negative CTA and negative serial troponins earlier this week, complaining of burning central chest pain, patient is tearful while describing her story endorses perseverating on this chest pain worrying if she has got some sort of lung infection or if this is asthma or other pathology with onset for about a week now, states she is detoxing from nicotine and feels like her heart is racing, endorses vaping. 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 Severity is described as moderate. Palliating factors include nothing specific. Provoking factors include nothing specific. Patients' medical history: Anxiety, PTSD, OCD, asthma. Family and social history: Endorses losing 2 close family members this year having high stress job. Pertinent exam findings / vital signs include benign cardiopulmonary exam, nonpleuritic central chest pain, benign abdomen, nontoxic vitals, no respiratory distress. Differential / pathologies of concern include anxiety, mild asthma, non-ACS or PE. Diagnostic studies of: -EKG, completely normal sinus rhythm without any ectopy or ST changes, normal intervals, normal axis, no T wave inversions or other abnormalities. Interventions of: -1 Ativan to go for this evening, Rx for hydroxyzine and renewed her albuterol as it was 6 months and she was very worried about this. ED Course/Assessment/Plan: 28-year-old otherwise healthy female presents for the third time for workup of acute chest pain that has not changed, she has a negative workup for ACS and pulmonary emboli this week, she is tearful when describing this pain and is clearly an anxious anxiety ridden state. I counseled her on unlikely need for workup today with normal EKG and will trial her on anxiety meds, I stressed strict return criteria for any hemoptysis, worsening chest pain with exertion, especially with dizziness, sweating, near syncope but stressed that she should follow-up with primary care which she has appointment for on April 15 with her anxiety issues. Findings not consistent with ACS, PE, pneumonia, respiratory infection. Disposition of anxiety. Patient verbalized understanding of the plan and return to ED criteria and engaged in shared decision making. Medical Records Medical records reviewed: Yes I reviewed the patient's medical records. Quality:[facility] Health Related Social Needs: Health related social needs housing instability, housed, with risk of homelessness(Z59.811) [facility] All Active Problems (Updated 04/04/24 @ 17:33 by MARK Horner) Anxiety (Chronic) Chest pain (Acute) Chest pain (Acute) IUD surveillance (Acute) Postop check (Acute) Dysmenorrhea (Acute) Fever, unknown origin (Acute) Diarrhea (Acute) Unintentional weight loss (Acute) Endometriosis (Chronic) 2017. Mild, dx by [place]oscopy in [place] 08/2022. Stage 1 posterior cul-de-sac. excised and fulgurated. Bicornuate uterus (Chronic) 2018. 6mm fundal indentation. Single cervix. Pelvic pain (Chronic) Longstanding. 2018. Dx by laparoscopy with mild endometriosis. Fulgurated at time of surgery. Anxiety and depression (Chronic) PTSD (post-traumatic stress disorder) (Acute) Obsessive compulsive disorder (Acute) Asthma (Chronic) Kidney stones (Chronic) Surgical History H/O elbow surgery 2007. H/O laparoscopy 2018. [place]osis. [place]. 08/2022. Stage 1 posterior cul-de-sac. excised and fulgurated. Hx of dilation and curettage 2018. At time of fulguration of endometriosis. Nl endometrium. [place] Hx of tonsillectomy 2017. Ulnar nerve abnormality 2013 Umbilical hernia 2006 [place] teeth extracted 2011. Social History Smoking/Tobacco Use Status: Never Smoking risk assessment performed?: Yes Alcohol Intake: current Alcohol Intake frequency: a few times a month Drug use: Daily Substance use type: marijuana Details: 08/23/22 smoked marijuana Household members: friend(s) and other Details: roomate. 2021. from female partner of 4 yrs. Housing: apartment Number of Children: 0 Education Level: college current occupation: Graduate work. Works as material specialist Pets and animals: Yes (pit bull: [email or web address]. ) Sexually active: Yes Do you think of yourself as: lesbian/walker/homosexual Current gender identity: female Do you feel safe at home: Yes Do you feel safe in your relationship?: Yes
[2024-04-04] MEDS: LORazepam 0.5 MG TAB 1 MG PO (17:43)
[2024-04-04 17:46] VITALS: RESP 20
== END 2024-04-04 17:46 | disposition home or self-care (01) ==
PROVIDERS: Emergency Provider Physician Assistant
DX: F41.9 Anxiety disorder, unspecified; R07.9 Chest pain, unspecified; Z79.899 Other long term (current) drug therapy; J45.909 Unspecified asthma, uncomplicated; Z59.811 Housing instability, housed, with risk of homelessness
CPT/HCPCS: 93005; 99283; 93010; 99284

== ENCOUNTER 2024-06-28 16:23 | Outpatient (REF) | payer BC, SELFPAY ==
[2024-06-28 21:12] LABS: Absolute Monocyte Count 0.26 10^3/uL (0.1-0.8); Absolute Neutrophil Count 13.23 10^3/uL (1.2-6.7); Basophils % 0.1 %; Eosinophils % 0.1 %; HCT 41.1 % (36.0-46.0); HGB 14.2 g/dL (11.2-15.7); Immature Grans % 0.7 %; Lymphocytes % 7.2 %; MCH 29.3 pg (27.0-33.0); MCHC 34.5 % (32.0-36.0); MCV 85 fL (80-95); MPV 11.5 fL (8.0-11.0); Monocytes % 1.8 %; Neutrophils % 90.1 %; Platelet Count 339 10^3/uL (130-400); RBC 4.84 10^6/uL (3.93-5.22); RDW 12.3 % (11.7-14.6); RDW-SD 37.9 fL; WBC 14.68 10^3/uL (4.4-10.8)
[2024-06-28 21:13] LABS: Absolute Basophil Count 0.01 10^3/uL (0.0-0.2); Absolute Eosinophil Count 0.01 10^3/uL (0.0-0.7); Absolute Lymphocyte Count 1.06 10^3/uL (1.2-3.4)
[2024-06-28 21:22] LABS: Iron 90 ug/dL (50-170); Total Iron Binding Capacity 318 ug/dL (250-450); Transferrin Sat 28 % (15-50)
[2024-06-28 21:35] LABS: ALT 14 U/L (14-59); AST 6 U/L (15-37); Albumin 4.2 g/dL (3.4-5.0); Alkaline Phosphatase 82 U/L (46-116); Anion Gap 12.1 mmol/L (3-11); BUN 10 mg/dL (7-18); Bilirubin, Total 0.31 mg/dL (0.2-1.0); CO2 24.9 mmol/L (21.0-32.0); CREATININE 0.9 mg/dL (0.55-1.02); Calcium 9.7 mg/dL (8.5-10.1); Calculated LDL 108 mg/dL (<100); Chloride 104 mmol/L (98-107); Cholesterol 213 mg/dL (<200); Estimated GFR 89.86 (mL/min/1.73m2); Ferritin 58 ng/mL (8-252); Glucose 139 mg/dL (74-106); HDL Cholesterol 57 mg/dL (40-60); Sodium 141 mmol/L (136-145); TSH (W/Ref FT4) 0.81 uIU/mL (0.36-3.74); Total Protein 7.4 g/dL (6.4-8.2); Triglyceride 243 mg/dL (<150)
[2024-07-01 10:50] LABS: Hepatitis C Ab w Rflx HCV PCR Negative (Negative)
[2024-07-01 10:57] LABS: HIV-1/2 Ag & Ab Screen Negative (Negative)
== END 2024-06-28 16:24 | disposition home or self-care (01) ==
LOC: NCHCN 16:23
PROVIDERS: PCP Nurse Practitioner Family; Visit Provider Nurse Practitioner Family
DX: R07.89 Other chest pain (principal); Z13.220 Encounter for screening for lipoid disorders; Z13.1 Encounter for screening for diabetes mellitus; Z11.59 Encounter for screening for other viral diseases
CPT/HCPCS: 80053; 80061; 86803; 87389; 82728; 83036; 83540; 83550; 84443; 85025

== ENCOUNTER 2024-07-03 01:54 | Outpatient (CLI) | payer BC, SELFPAY ==
--- NOTE | 2024-07-03 | DI.RAD_ITS ---
Exam(s) XR CHEST 2V PA LATERAL EXAM: XR CHEST 2V PA LATERAL CLINICAL HISTORY: CHEST WALL PAIN,R07.89. TECHNIQUE: 2D digital imaging was performed. COMPARISON: CR XR CHEST 2V PA LATERAL from 03/26/2024 FINDINGS: 2 views: Heart size is normal. The mediastinum is not widened. Lungs are clear. No infiltrates nor pleural effusions. IMPRESSION: No acute pulmonary findings. DATA REPOSITORY: RADIATION DOSE DELIVERED:
== END 2024-07-03 02:14 ==
PROVIDERS: PCP Nurse Practitioner Family; Visit Provider Nurse Practitioner Family
DX: R07.89 Other chest pain (principal)
CPT/HCPCS: 71046

== ENCOUNTER 2024-07-05 09:51 | Outpatient (RCR) | payer BC, SELFPAY | END 2024-07-12 23:59 | disposition home or self-care (01) | LOC: CARDOPNVT 09:51 | PROVIDERS: PCP Nurse Practitioner Family; Visit Provider Internal Medicine Cardiovascular Disease | DX: R00.2 Palpitations (principal) | CPT/HCPCS: 93225; 93226 ==

== ENCOUNTER 2024-07-11 03:25 | Outpatient (CLI) | payer BC, SELFPAY ==
[2024-07-11] MEDS: Inhaler, Assist Device 1 EACH MC (16:29)
[2024-07-11] MEDS: Methacholine 100 MG VIAL IH (16:29)
[2024-07-11] MEDS: Albuterol HFA 18 GM 200 PUFF INH IH (16:30)
--- NOTE | 2024-07-15 14:06 | W.PFT ---
Date of service: 07/11/24 Time of Service: 13:02 Pulmonary Function Test Result Indications: Asthma Interpretation Spirometry: There is no baseline airflow obstruction. There was a 22% decreased in FEV1 with administration of 4.0mg/dL methacholine. Lung Volumes: Normal lung volumes Diffusion Capacity: Normal diffusion Airway Pressure: Normal airways resistance Impression Normal baseline pulmonary function with a positive methacholine challenge. Clinical Correlation therefore is recommended.
== END 2024-07-11 03:26 | disposition home or self-care (01) ==
LOC: RT 03:25
PROVIDERS: PCP Nurse Practitioner Family; Visit Provider Student in an Organized Health Care Education/Training Program
DX: J45.20 Mild intermittent asthma, uncomplicated (principal)
CPT/HCPCS: 94060; 94070; 94726; 94729; J7674

== ENCOUNTER 2024-07-15 18:25 | Outpatient (REF) | payer BC, SELFPAY ==
[2024-07-15 21:24] LABS: Abs Immature Grans 0.03 10^3/uL (0.0-0.06); Absolute Basophil Count 0.04 10^3/uL (0.0-0.2); Absolute Eosinophil Count 0.15 10^3/uL (0.0-0.7); Absolute Monocyte Count 0.45 10^3/uL (0.1-0.8); Absolute Neutrophil Count 6.69 10^3/uL (1.2-6.7); Basophils % 0.4 %; Eosinophils % 1.6 %; HCT 40.6 % (36.0-46.0); HGB 13.7 g/dL (11.2-15.7); Immature Grans % 0.3 %; Lymphocytes % 21.4 %; MCH 29.6 pg (27.0-33.0); MCHC 33.7 % (32.0-36.0); MCV 88 fL (80-95); MPV 10.8 fL (8.0-11.0); Monocytes % 4.8 %; Neutrophils % 71.5 %; Platelet Count 344 10^3/uL (130-400); RBC 4.63 10^6/uL (3.93-5.22); RDW 12.3 % (11.7-14.6); RDW-SD 39.1 fL; WBC 9.36 10^3/uL (4.4-10.8)
[2024-07-15 21:38] LABS: LDH 130 U/L (81-234)
[2024-07-15 21:39] LABS: C-Reactive Protein < 0.50 mg/dL (<or=0.5)
[2024-07-18 11:52] LABS: Erythropoietin 8.8 mIU/mL (2.6 - 18.5)
== END 2024-07-15 18:26 | disposition home or self-care (01) ==
LOC: NCHCN 18:25
PROVIDERS: PCP Nurse Practitioner Family; Visit Provider Nurse Practitioner Family
DX: D72.829 Elevated white blood cell count, unspecified (principal)
CPT/HCPCS: 82668; 83615; 85025; 86140

== ENCOUNTER 2024-12-25 21:37 | Outpatient (CLI) | payer BC, SELFPAY ==
[2024-12-25 18:24] LABS: TSH (W/Ref FT4) 1.20 uIU/mL (0.36-3.74)
== END 2024-12-25 21:38 | disposition home or self-care (01) ==
LOC: LBO 21:37
PROVIDERS: PCP Nurse Practitioner Family; Visit Provider Physician Assistant Medical
DX: J39.2 Other diseases of pharynx (principal)
CPT/HCPCS: 36415; 84443